=== PATIENT | male | born 1975 | race Caucasian/White ===

== ENCOUNTER → 2020-05-20 | Outpatient (CLI) | payer MEDICARE | LOC: RAD 14:03 | DX: M85.652 Other cyst of bone, left thigh (principal); M16.12 Unilateral primary osteoarthritis, left hip; M25.752 Osteophyte, left hip; M25.562 Pain in left knee ==

== ENCOUNTER → 2020-05-29 | Outpatient (CLI) | payer MEDICARE ==
[2020-05-29 14:53] LABS: HEMATOCRIT 43.2 % (42.0-52.0); HEMOGLOBIN 14.3 g/dL (13.5-18.0); MEAN CELL VOLUME 96 fl (78-100); MEAN CORPUSCULAR HEMOGLOBIN 32 pg (27-31); MEAN CORPUSCULAR HGB CONC 33 g/dL (33-37); MEAN PLATELET VOLUME 10.7 fl (7.4-10.4); PLATELET COUNT 206 K/mm3 (130-400); RED BLOOD COUNT 4.48 M/mm3 (4.20-5.60); RED CELL DISTRIBUTION WIDTH 12.9 % (11.5-14.5); WHITE BLOOD COUNT 5.7 K/mm3 (4.8-10.8)
[2020-05-29 15:04] LABS: ALBUMIN 4.3 g/dL (3.5-5.0)
[2020-05-29 15:05] LABS: CALCIUM 8.9 mg/dL (8.3-10.5)
[2020-05-29 15:06] LABS: TOTAL PROTEIN 7.2 g/dL (6.4-8.3)
[2020-05-29 15:08] LABS: TOTAL BILIRUBIN 0.8 mg/dL (0.2-1.2)
[2020-05-29 15:19] LABS: LYMPHOCYTE 35 % (20-51); MONOCYTE 16 % (3-10); NEUTROPHILS 47 % (42-75); OVALOCYTES 1+
[2020-05-29 15:20] LABS: STOMATOCYTE 1+
[2020-05-30 12:59] LABS: ANA SCREEN with REFLEX Negative (Negative)
== END ==
LOC: LAB 14:40
PROVIDERS: Physician Assistant
DX: Z00.00 Encounter for general adult medical examination without abnormal findings (principal); M25.50 Pain in unspecified joint; E78.5 Hyperlipidemia, unspecified

== ENCOUNTER → 2021-03-11 | Outpatient (CLI) | payer MEDICARE | LOC: RAD 17:32 | DX: R07.81 Pleurodynia (principal) ==